=== PATIENT | male | born 1925 | race Caucasian/White ===

== ENCOUNTER 2017-03-22 16:40 | Emergency (ER) | payer OTHER ==
[~2017-03-22] VITALS: Ht 167.6 cm; Wt 77.3 kg
[~2017-03-22 16:40] MED LIST: ADULT LOW DOSE81 M1 PO; COZAAR50 MG PO; DILANTIN BRAND100 MG PO; DILANTIN100 MG PO; DILAUDID2 MG PO; DuoNeb IH; FLEXERIL10 MG PO; FLEXERIL5 MG PO; PERCOCET 5/31 TABLET PO; PHENOBARBITAL64.8 MG PO; Phenobarbital PO; TOPROL XL50 MG PO; TORADOL10 MG PO; ZOCOR40 MG PO; ZOFRAN4 MG PO; [UNRECOGNIZED DRUG - OTHER]; predniSONE PO
[2017-03-22 17:43] LABS: HEMATOCRIT 34.5 % (38.0-50.0); MCH 30.5 PG (29.0-34.0); MCHC 32.2 G/DL (30.0-36.0); MCV 94.8 FL (86-99); MEAN PLAT.VOLUME 8.6 uM^3 (9.0-12.4); PLATELET COUNT 432 K/uL (156-360); RBC DIS.WIDTH-CV 13.3 % (11.8-14.6); RBC DIS.WIDTH-SD 46.7 % (39-53); RED BLOOD COUNT 3.64 M/uL (4.00-5.50)
[2017-03-22 17:50] LABS: CHLORIDE 101 mEq/L (99-109); POTASSIUM 4.5 mEq/L (3.7-5.4); SODIUM 138 mEq/L (136-147)
[2017-03-22 17:52] LABS: GLUCOSE 106 mg/dL (70-99)
[2017-03-22 17:54] LABS: ANION GAP 10 MEQ/L (2-14)
[2017-03-22 17:56] LABS: GFR ESTIMATE (CALCULATED) > 59 mL/min/
[2017-03-22 17:57] LABS: UREA NITROGEN (BUN) 11 mg/dL (9-23)
[2017-03-22] MEDS ORDERED: INDOCIN50 MG PO (18:55)
[2017-03-22] MEDS ORDERED: VIBRAMYCIN100 MG PO (18:55)
[2017-03-22 19:21] VITALS: BP 128/106
== END 2017-03-22 19:22 | disposition home or self-care (01) ==
LOC: EME 16:40
PROVIDERS: Physician Assistant Medical
DX: M19.071 Primary osteoarthritis, right ankle and foot (principal); M79.674 Pain in right toe(s); G40.909 Epilepsy, unspecified, not intractable, without status epilepticus
CPT/HCPCS: 73630; 80048; 85027; 99281; 99284